=== PATIENT | female | born 1960 | race Caucasian/White ===

== ENCOUNTER 2016-09-16 08:53 | Day surgery (SDC) | payer OTHER ==
[~2016-09-16 08:53] MED LIST: LIDOCAINE HCL 1% MPF SOL ONE; PROPOFOL 500 MG/50 ML EMU IV ONE
[2016-09-16 10:21] VITALS: BP 122/84; PULSE 85; RESP 20; TEMP 97.5; O2SAT 95
== END 2016-09-16 11:00 | disposition home or self-care (01) ==
LOC: SURG 08:53
PROVIDERS: ATTEND Surgery
DX: Z12.11 Encounter for screening for malignant neoplasm of colon (principal); D12.4 Benign neoplasm of descending colon; D12.8 Benign neoplasm of rectum
CPT/HCPCS: 45385; 99001; J2001; J2704